=== PATIENT | male | born 1945 | race Caucasian/White ===

== ENCOUNTER 2017-09-19 05:43 | Inpatient (IN) ==
[2017-08-10 09:53] LABS: Basophils % 0.7 % (0.0-0.8); Eosinophils # 0.1 10*3/uL (0.0-0.87); Eosinophils % 1.1 % (0.00-10.9); Hematocrit 40.1 VOL% (42.0-52.0); Hemoglobin 13.4 GM/DL (14.0-18.0); Immature Granulocytes % 0.2 %; Immature Granulocytes Absolute 0.01 #; Lymphocytes # 1.9 10*3/uL (1.4-4.0); Lymphocytes % 42.2 % (21.2-54.2); Mean Corpuscular HGB Conc 33.4 GM/DL (32-36); Mean Corpuscular Hemoglobin 32 PG (27-34); Mean Corpuscular Volume 97.1 FL (87-102); Mean Platelet Volume 9.5 FL (9.6-12.0); Monocytes # 0.4 10*3/uL (0.11-0.8); Monocytes % 7.7 % (1.7-12.7); Neutrophils # 2.2 10*3/uL (1.4-7.4); Neutrophils % 48.1 % (38.7-73.9); Platelet Count 183 T/CUMM (130-400); Red Blood Count 4.13 MC/CUMM (3.8-5.5); Red Cell Distribution Width 12.9 % (9.3-17.3); White Blood Count 4.5 T/CUMM (4-12)
[2017-08-10 10:20] LABS: Albumin 3.5 G/DL (3.4-5.0); Bilirubin,Total 0.6 MG/DL (0.2-1.0); Osmolality,Calculated 281.3 MOS/KG (273-304); Potassium 4.6 MMOL/L (3.5-5.1); Total Protein 7.5 G/DL (6.4-8.3)
[2017-08-11 11:02] LABS: Free PSA/PSA Ratio 0.2 ratio
[~2017-09-19 05:43] MED LIST: cefTRIAXone 1,000 MG in SYRINGE 1 EACH IV ONE
[2017-09-19] MEDS ORDERED: FAMOTIDINE 20 MG TABLET PO ONE (06:00)
[2017-09-19] MEDS ORDERED: DIAZEPAM 5 MG TABLET PO ONE (06:00)
[2017-09-19] MEDS ORDERED: ACETAMINOPHEN 500 MG TABLET PO ONE (06:00)
[2017-09-19] MEDS ORDERED: GABAPENTIN 400 MG CAPSULE PO ONE (06:00)
[2017-09-19] MEDS ORDERED: GABAPENTIN 400 MG CAPSULE ONE (06:12)
[2017-09-19] MEDS ORDERED: cefTRIAXone 1,000 MG VIAL ONE (06:12)
[2017-09-19] MEDS ORDERED: ACETAMINOPHEN 500 MG TABLET ONE (06:12)
[2017-09-19] MEDS ORDERED: DIAZEPAM 5 MG TABLET ONE (06:12)
[2017-09-19] MEDS ORDERED: FAMOTIDINE 20 MG TABLET ONE (06:13)
[2017-09-19] MEDS ORDERED: SODIUM PHOSPHATE ENEMA 133 ML BOTTLE RECTAL ONE ×2 (06:13→06:30)
[2017-09-19] MEDS ORDERED: cefTRIAXone 1,000 MG in SYRINGE 1 EACH IV ONE (06:30)
[2017-09-19] MEDS: LACTATED RINGERS 1,000 ML IV SCH (06:45)
[2017-09-19 09:01] LABS: Apearance,Urine CLEAR (Clear); Bilirubin,Urine Negative (Negative); Blood, Urine Moderate mg/dL (Negative); Glucose,Urine (UA) Negative (Negative); Ketones,Urine Negative (Negative); Mucus,Urine Occasional /LPF (Occasional); Nitrite,Urine Negative (Negative); Protein,Urine Negative; RBC,Urine 14 /HPF (0-4); Sperm,Urine Occasional /HPF (Negative); Squamous Epithelial Cell,Urine Occasional /HPF (0-10); Urine Color Yellow (Yellow); Urine Specific Gravity 1.016 (1.001-1.035); Urine Urobilinogen < 2.0 EU/DL (0.2-1.0); WBC,Urine 2 /HPF (0-6)
[2017-09-19] MEDS ORDERED: BUPIVACAINE 0.5% 50 ML VIAL ONE (11:20)
[2017-09-19] MEDS ORDERED: MORPHINE 10 MG/1 ML VIAL IV PRN (11:37)
[2017-09-19] MEDS ORDERED: PROMETHAZINE 25 MG/1 ML VIAL IM PRN (11:37)
[2017-09-19] MEDS ORDERED: LACTULOSE 20 GM/30 ML UDCUP PO PRN (11:37)
[2017-09-19] MEDS ORDERED: ONDANSETRON 4 MG/2 ML VIAL IV PRN (11:37)
[2017-09-19] MEDS ORDERED: PANTOPRAZOLE 40 MG TABLET PO PRN (11:40)
[2017-09-19] MEDS ORDERED: PROPOFOL 200 MG/20 ML VIAL IV ONE (11:49)
[2017-09-19] MEDS ORDERED: PHENYLEPHRINE 1 MG/10 ML SYRINGE IV ONE (11:50)
[2017-09-19] MEDS ORDERED: PHENYLEPHRINE 10 MG/1 ML VIAL IV ONE (11:50)
[2017-09-19] MEDS ORDERED: SEVOFLURANE 1 UNIT/15 MINUTE INH ONE (11:50)
[2017-09-19] MEDS ORDERED: LIDOCAINE 1% 5 ML VIAL ONE (11:50)
[2017-09-19] MEDS ORDERED: ONDANSETRON 4 MG/2 ML VIAL ONE (11:50)
[2017-09-19] MEDS ORDERED: MIDAZOLAM 2 MG/2 ML VIAL ONE (11:50)
[2017-09-19] MEDS ORDERED: LACTATED RINGERS 2,000 ML IV ONE (11:51)
[2017-09-19] MEDS ORDERED: ROCURONIUM 100 MG/10 ML VIAL IV ONE (11:51)
[2017-09-19] MEDS ORDERED: SODIUM CHLORIDE 0.9% 250 ML IV ONE (11:51)
[2017-09-19] MEDS: ACETAMINOPHEN 325 MG TABLET PO SCH ×2 (13:39→17:47)
[2017-09-19] MEDS: DOCUSATE SODIUM 100 MG CAPSULE PO SCH (20:09)
[2017-09-19] MEDS: rOPINIRole 1 MG TABLET PO SCH (20:10)
[2017-09-19] MEDS: amLODIPine 5 MG TABLET PO SCH (20:10)
[2017-09-20] MEDS: ACETAMINOPHEN 325 MG TABLET PO SCH ×5 (00:40→23:47)
[2017-09-20] MEDS: LEVOTHYROXINE 100 MCG TABLET PO SCH (06:07)
[2017-09-20 07:13] LABS: Basophils % 0.4 % (0.0-0.8); Eosinophils % 0.1 % (0.00-10.9); Hematocrit 35.7 VOL% (42.0-52.0); Hemoglobin 11.6 GM/DL (14.0-18.0); Immature Granulocytes % 0.3 %; Immature Granulocytes Absolute 0.02 #; Lymphocytes # 2.2 10*3/uL (1.4-4.0); Lymphocytes % 29.8 % (21.2-54.2); Mean Corpuscular HGB Conc 32.5 GM/DL (32-36); Mean Corpuscular Hemoglobin 32 PG (27-34); Mean Corpuscular Volume 99.2 FL (87-102); Mean Platelet Volume 10.4 FL (9.6-12.0); Monocytes # 0.6 10*3/uL (0.11-0.8); Monocytes % 8.6 % (1.7-12.7); Neutrophils # 4.5 10*3/uL (1.4-7.4); Neutrophils % 60.8 % (38.7-73.9); Platelet Count 148 T/CUMM (130-400); Red Cell Distribution Width 13.6 % (9.3-17.3); White Blood Count 7.5 T/CUMM (4-12)
[2017-09-20] MEDS: LACTATED RINGERS 1,000 ML IV SCH (07:41)
[2017-09-20 07:54] LABS: Calcium 7.7 MG/DL (8.5-10.1); Osmolality,Calculated 285.8 MOS/KG (273-304); Potassium 4.2 MMOL/L (3.5-5.1)
[2017-09-20] MEDS ORDERED: SODIUM CHLORIDE 0.9% 500 ML IV ONE (09:20)
[2017-09-20] MEDS: DOCUSATE SODIUM 100 MG CAPSULE PO SCH ×2 (09:54→20:41)
[2017-09-20] MEDS: amLODIPine 5 MG TABLET PO SCH (20:41)
[2017-09-20] MEDS: rOPINIRole 1 MG TABLET PO SCH (20:41)
[2017-09-21] MEDS: LEVOTHYROXINE 100 MCG TABLET PO SCH (06:06)
[2017-09-21] MEDS: ACETAMINOPHEN 325 MG TABLET PO SCH (06:06)
[2017-09-21 08:03] VITALS: BP 149/78
[2017-09-21] MEDS: LACTATED RINGERS 1,000 ML IV SCH (09:22)
[2017-09-21] MEDS: DOCUSATE SODIUM 100 MG CAPSULE PO SCH (09:26)
== END 2017-09-21 10:18 | disposition home or self-care (01) | DRG 708 ==
LOC: N.OR 05:43 → N.SDSINP 06:04 → N.3E 09:55
PROVIDERS: ADMIT Surgery; ATTEND Surgery